=== PATIENT | female | born 1935 | race Caucasian/White ===

== ENCOUNTER 2016-09-08 08:56 | Emergency (ER) | payer MEDICARE, OTHER ==
[~2016-09-08] VITALS: Ht 162.6 cm; Wt 80.0 kg
[~2016-09-08 08:56] MED LIST: CALCTAB80 PO; CHEL50TA PO; FISH120014 PO; LEVO.025 PO; LOVA1TAB47 PO; LUTE20CA PO; MECL-62 PO; OCUVTAB PO; OMEP20CA5 PO; VITATAB25 PO
[2016-09-08 08:58] VITALS: BP 153/68; PULSE 83; RESP 17; TEMP 97.8; O2SAT 97
[2016-09-08] MEDS ORDERED: OCUVTAB PO (09:10)
[2016-09-08] MEDS ORDERED: VITA100064 PO (09:10)
[2016-09-08] MEDS ORDERED: LUTE20CA PO (09:10)
[2016-09-08] MEDS ORDERED: LOVA20TA PO (09:10)
[2016-09-08] MEDS ORDERED: OMEP20TA PO (09:10)
[2016-09-08] MEDS ORDERED: CHEL50TA (09:10)
[2016-09-08] MEDS ORDERED: FISH1000 (09:10)
[2016-09-08] MEDS ORDERED: MECL-62 PO (09:10)
[2016-09-08] MEDS ORDERED: LEVO25TA4 PO (09:10)
[2016-09-08] MEDS ORDERED: CALC1TAB42 PO (09:10)
[2016-09-08] MEDS ORDERED: AZIT250T3 PO (09:16)
[2016-09-08] MEDS ORDERED: ALBU6.7H INH (09:16)
--- NOTE | 2016-09-08 09:16 | PD ---
HPI Chief Complaint: Cold / Flu Symptoms Time Seen by Provider: 09:05 Travel History International Travel<30 days: No Contact w/Intl Traveler<30days: No Traveled to known affect area: No History of Present Illness HPI 81-year-old female. The patient's had about 2 weeks of upper respiratory symptoms including postnasal drip and tenderness at night. For the past few days she's had a cough nonproductive which can be severe at times. No nausea or vomiting. No chest pain. Her husbands had pneumonia twice in the past few months most recently in the past week. She denies fever. 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 Proventil Hfa 6.7 GM Inh (Albuterol Sulfate) 90 Mcg/Act Aer 2 Puff INH Q6H PRN Reported Fish Oil ([place]-3 Fatty Acids) 1,000 Mg Cap Vitamin D3 (Cholecalciferol) 1,000 Unit Tab 1,000 Units PO DAILY Lutein 20 Mg Cap 20 Mg PO DAILY Ocuvite (Multiple Vitamins W/ Minerals) 1 Tab 1 Tab PO DAILY Zinc (Zinc Gluconate) 50 Mg Tab Calcium 500+D (Calcium Carbonate-Cholecalciferol) 500-200 Mg-Unit Tab 1 Tab PO BID Omeprazole 20 Mg Tab 20 Mg PO DAILY Lovastatin 20 Mg Tab 20 Mg PO DAILY Levothyroxine (Levothyroxine Sodium) 25 Mcg Tab 25 Mcg PO DAILY Meclizine (Meclizine HCl) 25 Mg Tab 25 Mg PO BID Review of Systems General / Constitutional: No: Fever HENT: Positive: Congestion Respiratory: Positive: Cough, No: Shortness of Breath Physical Exam Narrative GENERAL: 81-year-old female pleasant well-nourished well-developed occasional dry cough SKIN: Warm and dry. HEAD: Normocephalic. EYES: No scleral icterus. No injection or drainage. NECK: Supple, trachea midline. No JVD or lymphadenopathy. CARDIOVASCULAR: Regular rate and rhythm without murmurs, gallops, or rubs. RESPIRATORY: No accessory muscle use. Trace wheeze in the right lung. Data Data Last Documented VS Vital Signs Date Time Temp Pulse Resp B/P Pulse Ox O2 Delivery O2 Flow Rate FiO2 09/08/16 08:58 97.8 83 17 153/68 97 Vital signs reviewed Orders Dexamethasone Inj (Decadron Inj) (09/08/16 09:30) MDM Medical Decision Making Medical Screen Exam Complete: Yes Emergency Medical Condition: Yes Medical Record Reviewed: Yes Differential Diagnosis Viral URI, bronchitis, pneumonia, postnasal drip, GERD Narrative Course Symptoms appear most compatible with bronchitis and/or postnasal drip. Scripts as below. Atypical pneumonia is not entirely excluded. Diagnosis Primary Impression: Cough Additional Impression: Postnasal drip Referrals: Marielle Paez Jr., MD 2 days Additional Instructions: IF YOU DEVELOP CHEST PAIN PLEASE RETURN TO THE ER. IF YOU DEVELOP DIFFICULTY BREATHING PLEASE RETURN TO THE ER. PLEASE FOLLOW UP WITH DR TELLES IF SYMPTOMS DON'T IMPROVE WITHIN TWO DAYS. You have a choice when it comes to health care, and we are glad that you chose [facility]. Hopefully, we have met your expectations on today's visit. You are welcome to return to [facility] at any time, as we are committed to meeting the health care needs of our community. Med/Other Pt SpecificInfo: Prescription(s) given Scripts Azithromycin 250 Mg Ucl600 Mg PO DIRECTED #6 TAB Ref 0 Take 2 tabs (500 mg) on day 1 then 1 tab daily x 4 days. Prov:Rafa Page MD 09/08/16 Albuterol 6.7 GM Inh (Proventil Hfa 6.7 GM Inh)90 Mcg/Act Aer2 Puff INH Q6H PRN (COUGH) #1 INHALER Ref 0 Prov:Rafa Page MD 09/08/16 Disposition: 01 DISCHARGE HOME Condition: Stable Rafa Page MD Sep 08, 2016 09:16
[2016-09-08] MEDS ORDERED: DEXAMETHASONE SOD PHOS 4 MG/ML VIAL IM ONE (09:30)
== END 2016-09-08 10:03 | disposition home or self-care (01) ==
LOC: PHED 08:56
DX: R05 Cough (principal); R09.82 Postnasal drip; K21.9 Gastro-esophageal reflux disease without esophagitis; E78.00 Pure hypercholesterolemia, unspecified
CPT/HCPCS: 96372; 99284; J1100

== ENCOUNTER 2017-01-06 04:00 | Emergency (ER) | payer MEDICARE, OTHER ==
[~2017-01-06] VITALS: Ht 162.6 cm; Wt 81.7 kg
[~2017-01-06 04:00] MED LIST changes: +ALBU6.7H INH; +AZIT250T3 PO; +CALC1TAB42 PO; -CALCTAB80 PO; +CHEL50TA; -CHEL50TA PO; +FISH1000; -FISH120014 PO; -LEVO.025 PO; +LEVO25TA4 PO; -LOVA1TAB47 PO; +LOVA20TA PO; -OMEP20CA5 PO; +OMEP20TA93 PO; +VITA100064 PO; -VITATAB25 PO
[2017-01-06 04:06] VITALS: BP 140/73; PULSE 92; TEMP 99.1; O2SAT 94
[2017-01-06 04:10] VITALS: O2SAT 94
[2017-01-06] MEDS ORDERED: SODIUM CHLOR 0.9% 1000 ML INJ 1,000 ML IV SCH (04:35)
--- NOTE | 2017-01-06 04:42 | PD ---
HPI Chief Complaint: Abdominal Pain Time Seen by Provider: 04:08 Travel History International Travel<30 days: No Contact w/Intl Traveler<30days: No Traveled to known affect area: No History of Present Illness HPI The patient is an 81-year-old female who complains of bilateral lower quadrant pain since Tuesday. She is been having bowel movements is not been nauseated. There is been no vomiting. She denies any diarrhea. She did take milk of Qalendra which led to some temporary loose stools. She is not a chronic laxative taker. She states the pain is minimal, a 3/10 with aching type pain but sometimes she gets a sudden colicky/crampy/sharp pain that goes to an 8/10. This does not last very long. The patient still has her gallbladder and is known to have gallstones but had her appendix removed many years ago. 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 ") Tonsillectomy: Yes Social History Alcohol Use: Yes (OCCASIONAL WINE) Tobacco Use: No Substance Use: No Allergies-Medications (Allergen,Severity, Reaction): Coded Allergies: No Known Allergies (Verified Adverse Reaction, Unknown, 01/06/17) Reported Meds & Prescriptions Reported Meds & Active Scripts Active Proventil Hfa 6.7 GM Inh (Albuterol Sulfate) 90 Mcg/Act Aer 2 Puff INH Q6H PRN Reported Fish Oil ([place]-3 Fatty Acids) 1,000 Mg Cap Vitamin D3 (Cholecalciferol) 1,000 Unit Tab 1,000 Units PO DAILY Lutein 20 Mg Cap 20 Mg PO DAILY Ocuvite (Multiple Vitamins W/ Minerals) 1 Tab 1 Tab PO DAILY Zinc (Zinc Gluconate) 50 Mg Tab Calcium 500+D (Calcium Carbonate-Cholecalciferol) 500-200 Mg-Unit Tab 1 Tab PO BID Omeprazole 20 Mg Tab 20 Mg PO DAILY Lovastatin 20 Mg Tab 20 Mg PO DAILY Levothyroxine (Levothyroxine Sodium) 25 Mcg Tab 25 Mcg PO DAILY Review of Systems Except as stated in HPI: all other systems reviewed are Neg Physical Exam Narrative GENERAL: The patient is alert, oriented 3 in minimal apparent distress with her abdominal discomfort. Her vital signs show heart rate of 92 and oximetry of 94% on room air but are otherwise normal. SKIN: Focused skin assessment warm/dry. HEAD: Atraumatic. Normocephalic. EYES: Pupils equal and round. No scleral icterus. No injection or drainage. ENT: No nasal bleeding or discharge. Mucous membranes pink and moist. NECK: Trachea midline. No JVD. CARDIOVASCULAR: Regular rate and rhythm. No murmur appreciated. RESPIRATORY: No accessory muscle use. Clear to auscultation. Breath sounds equal bilaterally. GASTROINTESTINAL: Abdomen soft, with minimal discomfort in the bilateral lower quadrants to direct palpation, nondistended. Hepatic and splenic margins not palpable. No guarding or rebound is present. MUSCULOSKELETAL: No obvious deformities. No clubbing. No cyanosis. No edema. NEUROLOGICAL: Awake and alert. No obvious cranial nerve deficits. Motor grossly within normal limits. Normal speech. PSYCHIATRIC: Appropriate mood and affect; insight and judgment normal. Data Data Last Documented VS Vital Signs Date Time Temp Pulse Resp B/P (MAP) Pulse Ox O2 Delivery O2 Flow Rate FiO2 01/06/17 04:33 18 01/06/17 04:06 99.1 92 140/73 (95) 94 Orders Orders Basic Metabolic Panel (Bmp) (01/06/17 04:35) Complete Blood Count With Diff (01/06/17 04:35) Urinalysis - C+S If Indicated (01/06/17 04:35) Iv Access Insert/Monitor (01/06/17 04:35) Ecg Monitoring (01/06/17 04:35) Oximetry (01/06/17 04:35) Sodium Chlor 0.9% 1000 Ml Inj (Ns 1000 M (01/06/17 04:35) Sodium Chloride 0.9% Flush (Ns Flush) (01/06/17 04:45) Urine Culture (01/06/17 04:50) Labs Laboratory Tests Test 01/06/17 04:50 White Blood Count 12.9 TH/MM3 Red Blood Count 4.73 MIL/MM3 Hemoglobin 13.2 GM/DL Hematocrit 40.2 % Mean Corpuscular Volume 84.9 FL Mean Corpuscular Hemoglobin 28.0 PG Mean Corpuscular Hemoglobin Concent 33.0 % Red Cell Distribution Width 12.7 % Platelet Count 238 TH/MM3 Mean Platelet Volume 6.9 FL Neutrophils (%) (Auto) 80.9 % Lymphocytes (%) (Auto) 11.2 % Monocytes (%) (Auto) 6.7 % Eosinophils (%) (Auto) 0.8 % Basophils (%) (Auto) 0.4 % Neutrophils # (Auto) 10.4 TH/MM3 Lymphocytes # (Auto) 1.4 TH/MM3 Monocytes # (Auto) 0.9 TH/MM3 Eosinophils # (Auto) 0.1 TH/MM3 Basophils # (Auto) 0.1 TH/MM3 CBC Comment DIFF FINAL Differential Comment Urine Color YELLOW Urine Turbidity CLOUDY Urine pH 8.0 Urine Specific [place] 1.020 Urine Protein TRACE mg/dL Urine Glucose (UA) NEG mg/dL Urine Ketones NEG mg/dL Urine Occult Blood NEG Urine Nitrite NEG Urine Bilirubin NEG Urine Leukocyte Esterase MOD Urine RBC 0-3 /hpf Urine WBC 15-19 /hpf Urine Squamous Epithelial Cells 0-5 /hpf Urine Amorphous Sediment FEW Urine Bacteria FEW /hpf Microscopic Urinalysis Comment CULTURE INDICATED Blood Urea Nitrogen 16 MG/DL Random Glucose 128 MG/DL Calcium Level 8.8 MG/DL Sodium Level 139 MEQ/L Potassium Level 3.8 MEQ/L Chloride Level 106 MEQ/L Carbon Dioxide Level 25.4 MEQ/L Anion Gap 8 MEQ/L MDM Medical Decision Making Medical Screen Exam Complete: Yes Emergency Medical Condition: Yes Medical Record Reviewed: Yes Interpretation(s) The CBC shows a white count of 12,900 with 81% neutrophils but is otherwise normal. The urine shows cloudy turbidity, trace protein, moderate leukocyte esterase and 15-19 white cells and few bacteria and culture is indicated. The basic metabolic profile is essentially normal. Differential Diagnosis Cystitis, colitis, ruptured ovarian cyst, diverticulitis Narrative Course The patient does have a urinary tract infection. This is cystitis although she may be experiencing some early elements of pyelonephritis. She is to increase her liquid intake and is given Macrobid twice daily for 10 days. Diagnosis Primary Impression: Cystitis Additional Instructions: As we discussed, increase liquid intake to establish a good urine flow through your kidneys. This will literally wash the germs downstream. The Macrobid is taken one tablet twice daily for 10 days. Follow-up with her primary care physician next week. Happy Thanksgiving. Med/Other Pt SpecificInfo: Prescription(s) given Disposition: 01 DISCHARGE HOME Condition: Stable Piyush Rodgers MD Jan 06, 2017 04:42
[2017-01-06] MEDS ORDERED: SODIUM CHLORIDE 0.9% FLUSH 10 ML FLUSH IV FLUSH PRN (04:45)
[2017-01-06 05:03] LABS: BLOOD, URINE NEG (NEG); GLUCOSE,URINE NEG (NEG); KETONE, URINE NEG (NEG); NITRITE,URINE NEG (NEG)
[2017-01-06 05:04] LABS: AUTOMATED NEUTROPHIL # 10.4 TH/MM3 (1.8-7.7); BASOPHIL # 0.1 TH/MM3 (0-0.2); BASOPHIL % 0.4 % (0.0-2.0); EOSINOPHIL # 0.1 TH/MM3 (0-0.4); EOSINOPHIL % 0.8 % (0.0-4.0); HEMATOCRIT 40.2 % (35.0-46.0); LYMPH % 11.2 % (9.0-44.0); LYMPHOCYTE # 1.4 TH/MM3 (1.0-4.8); MEAN CELL VOLUME 84.9 FL (80.0-100.0); MONO % 6.7 % (0.0-8.0); NEUT % 80.9 % (16.0-70.0); PLATELET COUNT 238 TH/MM3 (150-450); RED BLOOD COUNT 4.73 MIL/MM3 (4.00-5.30); RED CELL DISTRIBUTION WIDTH 12.7 % (11.6-17.2); WHITE BLOOD COUNT 12.9 TH/MM3 (4.0-11.0)
[2017-01-06 05:05] LABS: HEMO FLAGS DIFF FINAL
[2017-01-06 05:10] LABS: BACTERIA, URINE FEW /hpf; COMMENT (UR) CULTURE INDICATED; CULTURE IF INDICATED CULTURE INDICATED; RBC, URINE 0-3 /hpf (0-3); SQUAMOUS EPITHELIAL CELL URINE 0-5 /hpf (0-5); URINE COLOR YELLOW (YELLW/STRAW); WBC, URINE 15-19 /hpf (0-5)
[2017-01-06 05:11] LABS: POTASSIUM 3.8 MEQ/L (3.5-5.1)
[2017-01-06 05:14] LABS: BICARBONATE 25.4 MEQ/L (21.0-32.0)
[2017-01-06] MEDS ORDERED: MACR100C2 PO (05:20)
[2017-01-06] MEDS ORDERED: NITROFURANTOIN MONOHYD MACROCR 100 MG CAP PO ONE (05:30)
[2017-01-06 05:45] VITALS: BP 119/62; PULSE 82; RESP 18; O2SAT 95
== END 2017-01-06 05:48 | disposition home or self-care (01) ==
LOC: PHED 04:00
DX: N30.90 Cystitis, unspecified without hematuria (principal); B96.89 Other specified bacterial agents as the cause of diseases classified elsewhere; E78.00 Pure hypercholesterolemia, unspecified; K21.9 Gastro-esophageal reflux disease without esophagitis
CPT/HCPCS: 80048; 81001; 85025; 87086; 96360; 99284; J7030